=== PATIENT | female | born 1955 | race Caucasian/White ===

== ENCOUNTER 2023-09-02 16:09 | Inpatient (IN) | payer MEDICARE ==
[2023-09-02] MEDS ORDERED: Cefepime 2 GM VIAL ONE (16:58)
[2023-09-02] MEDS ORDERED: Acetaminophen 500 MG TAB ONE (16:58)
[2023-09-02] MEDS ORDERED: Sodium Chloride 0.9% 100 ML ONE (16:59)
[2023-09-02 17:02] LABS: #Monocytes 0.6 thou/uL (0.11-0.59); #Neutrophils 6.7 thou/uL (1.40-6.50); %Basophils 0.2 % (0.0-1.0); %Eosinophils 0.2 % (0.0-10.0); %Monocytes 7.1 % (0.0-10.0); %Neutrophils 80.7 % (42.0-75.0); Hematocrit 39.8 % (36.0-47.0); Hemoglobin 13.7 g/dL (12.0-16.0); Mean Corpuscular HGB CONC 34.4 g/dL (32.0-36.0); Mean Corpuscular Hemoglobin 32.1 pg (27.0-31.0); Mean Corpuscular Volume 93.2 fl (78.0-98.0); Mean Platelet Volume 9.7 fL (7.4-10.4); Platelet Count 151 10x3/uL (130-400); RBC Distribution Width 12.5 % (11.5-14.5); Red Blood Cell (RBC) Count 4.27 mill/uL (4.20-5.40); White Blood Cell (WBC) Count 8.4 10x3/uL (4.8-10.8)
[2023-09-02 17:17] LABS: ALT (SGPT) 12 U/L (8-55); AST (SGOT) 18 U/L (5-34); Alkaline Phosphatase 46 U/L (40-110); Anion Gap 13 mmol/L (10-20); BUN (Urea Nitrogen) 14 mg/dL (9.8-20.1); Bilirubin, Total 0.9 mg/dL (0.2-1.2); Calc. Creatinine Clearance 0 mL/min (70-130); Calcium 9.3 mg/dL (7.8-10.44); Carbon Dioxide 25 mmol/L (23-31); Chloride 101 mmol/L (98-107); Estimated GFR 92; Globulin 2.8 g/dL (2.4-3.5); Glucose 103 mg/dL (80-115); Potassium 3.6 mmol/L (3.5-5.1); Protein, Total 6.8 g/dL (5.8-8.1); Sodium 135 mmol/L (136-145)
[2023-09-02 17:21] LABS: Troponin I 0.037 ng/mL (< 0.028)
[2023-09-02] MEDS ORDERED: Vancomycin (BATCH) 1.25 GM in Premix 1 BAG IVPB SCH (17:45)
[2023-09-02 17:54] LABS: SARS-CoV-2 NAA Rapid Test Not Detected (NotDetected)
[2023-09-02] MEDS ORDERED: Aspirin Chewable 81 MG TAB ONE (17:54)
[2023-09-02] MEDS ORDERED: Acetaminophen 325 MG TAB PO PRN (18:01)
[2023-09-02] MEDS ORDERED: Acetaminophen 650 MG Suppository PR PRN (18:01)
[2023-09-02] MEDS ORDERED: Nitroglycerin 0.4 MG TAB (25 Tab Bottle) SL PRN (18:04)
[2023-09-02] MEDS ORDERED: Sodium Chloride 0.65% Nasal 44 ML BOT EA NARE PRN (18:41)
[2023-09-02] MEDS ORDERED: Sodium Chloride 0.9% 1,000 ML IV SCH (18:45)
[2023-09-02] MEDS ORDERED: Ipratropium/Albuterol 3 ML NEB NEB SCH (18:45)
[2023-09-02 19:16] LABS: Bacteria/HPF None Seen HPF (None Seen); Bilirubin Negative (Negative); Blood, Urine Negative (Negative); CAUTI Indications for Culture Fever or rigors; Clarity Clear (Clear); Glucose, Urine (Dipstick) Normal (Negative); Ketone, Urine 10 mg/dL (Negative); Leukocyte Negative Leu/uL (Negative); Nitrite Negative (Negative); Protein, Urine (Dipstick) 50 mg/dL (Neg-Trace); RBC/HPF 0-3 HPF (0-3); Specific Gravity, Urine 1.015 (1.002-1.036); Squamous Epithelial None Seen HPF (0-3); Urobilinogen Normal mg/dL (Less than 2); WBC/HPF 0-3 HPF (0-3); pH, Urine 5.5 (5.0-9.0)
[2023-09-02 19:17] LABS: Urine Culture Reflex No No
[2023-09-02 19:42] VITALS: BMI 23.5
[2023-09-02 20:19] LABS: Legionella Urinary Ag Negative (Negative); Strep pneumo Urine Ag NEGATIVE (NEGATIVE)
[2023-09-02] MEDS: Azithromycin 500 MG in Sodium Chloride 0.9% 250 ML 250 ML IVPB SCH (20:19)
[2023-09-02] MEDS: Benzonatate 100 MG CAP PO SCH (20:20)
[2023-09-02] MEDS: cefTRIAXone\\ROCEPHIN 1 GM in Sodium Chloride 0.9% 100 ML IVPB SCH (20:20)
[2023-09-02] MEDS: Famotidine 20 MG TAB PO SCH (20:20)
[2023-09-02] MEDS: guaiFENesin ER 600 MG TAB PO SCH (20:20)
[2023-09-02] MEDS ORDERED: Ondansetron PF 4 MG/2 ML Vial IVP PRN (20:30)
[2023-09-02] MEDS ORDERED: Ondansetron ODT 4 MG TAB SL PRN (20:30)
[2023-09-02 23:10] LABS: Magnesium 1.7 mg/dL (1.6-2.6)
[2023-09-02 23:16] LABS: Troponin I 0.092 ng/mL (< 0.028)
[2023-09-03] MEDS ORDERED: Magnesium Sulfate In Water 4 GM in Premix 1 BAG IVPB SCH (02:30)
[2023-09-03 04:44] LABS: #Eosinphils 0.1 thou/uL (0.0-0.7); #Monocytes 0.8 thou/uL (0.11-0.59); #Neutrophils 7.8 thou/uL (1.40-6.50); %Basophils 0.3 % (0.0-1.0); %Eosinophils 0.8 % (0.0-10.0); %Lymphocytes 14.9 % (21.0-51.0); %Neutrophils 75.5 % (42.0-75.0); Hematocrit 34.1 % (36.0-47.0); Hemoglobin 11.6 g/dL (12.0-16.0); Mean Corpuscular Hemoglobin 32.4 pg (27.0-31.0); Mean Corpuscular Volume 95.3 fl (78.0-98.0); Mean Platelet Volume 10.5 fL (7.4-10.4); Platelet Count 130 10x3/uL (130-400); RBC Distribution Width 12.6 % (11.5-14.5); Red Blood Cell (RBC) Count 3.58 mill/uL (4.20-5.40); White Blood Cell (WBC) Count 10.3 10x3/uL (4.8-10.8)
[2023-09-03 05:10] LABS: Anion Gap 9 mmol/L (10-20); BUN (Urea Nitrogen) 13 mg/dL (9.8-20.1); Calc. Creatinine Clearance 90 mL/min (70-130); Calcium 8.3 mg/dL (7.8-10.44); Carbon Dioxide 25 mmol/L (23-31); Cardiac Risk 2.3 (Less than 4.5); Chloride 108 mmol/L (98-107); Cholesterol 150 mg/dl (< 200 Desired); Estimated GFR 96; Glucose 90 mg/dL (80-115); HDL Cholesterol 64 mg/dL (>60 Neg Risk); LDL Cholesterol, Calculated 69 mg/dL; Potassium 3.6 mmol/L (3.5-5.1); Sodium 138 mmol/L (136-145); Triglycerides 84 mg/dL (Less than 150)
[2023-09-03] MEDS: Benzonatate 100 MG CAP PO SCH ×3 (09:52→21:20)
[2023-09-03] MEDS: Aspirin Chewable 81 MG TAB PO SCH (09:53)
[2023-09-03] MEDS: Famotidine 20 MG TAB PO SCH ×2 (09:53→21:20)
[2023-09-03] MEDS: guaiFENesin ER 600 MG TAB PO SCH ×2 (09:53→21:21)
[2023-09-03] MEDS: Saccharomyces boulardii 250 MG CAP PO SCH (09:53)
[2023-09-03] MEDS: Benzocaine/Menthol 1 LOZ LOZ PO PRN ×2 (12:37→17:41)
[2023-09-03 13:26] LABS: Troponin I 0.128 ng/mL (< 0.028)
[2023-09-03] MEDS: Ipratropium/Albuterol 3 ML NEB NEB PRN (20:35)
[2023-09-03] MEDS ORDERED: Atorvastatin Calcium 20 MG TAB PO SCH (21:00)
[2023-09-03] MEDS: cefTRIAXone\\ROCEPHIN 1 GM in Sodium Chloride 0.9% 100 ML IVPB SCH (21:21)
[2023-09-03] MEDS: Azithromycin 500 MG in Sodium Chloride 0.9% 250 ML 250 ML IVPB SCH (21:21)
[2023-09-04] MEDS: Benzonatate 100 MG CAP PO SCH (08:13)
[2023-09-04] MEDS: Famotidine 20 MG TAB PO SCH (08:13)
[2023-09-04] MEDS: guaiFENesin ER 600 MG TAB PO SCH (08:13)
[2023-09-04] MEDS: Aspirin Chewable 81 MG TAB PO SCH (08:14)
[2023-09-04] MEDS: Saccharomyces boulardii 250 MG CAP PO SCH (08:14)
[2023-09-04] MEDS: Ipratropium/Albuterol 3 ML NEB NEB PRN (08:30)
[2023-09-04 08:39] VITALS: TEMP 98.3
[2023-09-04 10:33] VITALS: BP 94/60
== END 2023-09-04 12:11 | disposition home or self-care (01) | DRG 193 ==
LOC: ERS 16:09 → 2SW 17:49
PROVIDERS: ADMIT Internal Medicine; ATTEND Family Medicine
DX: J18.9 Pneumonia, unspecified organism (principal); J96.01 Acute respiratory failure with hypoxia; C56.9 Malignant neoplasm of unspecified ovary; I10 Essential (primary) hypertension; Z79.899 Other long term (current) drug therapy; Z90.710 Acquired absence of both cervix and uterus; Z90.89 Acquired absence of other organs; Z98.890 Other specified postprocedural states; Z82.49 Family history of ischemic heart disease and other diseases of the circulatory system; F17.210 Nicotine dependence, cigarettes, uncomplicated; Z79.82 Long term (current) use of aspirin; R79.89 Other specified abnormal findings of blood chemistry; E78.5 Hyperlipidemia, unspecified; Z11.52 Encounter for screening for COVID-19
CPT/HCPCS: 36415; 71045; 80048; 80053; 80061; 81001; 83605; 83735; 83880; 84443; 84484; 85025; 87040; 87449; 87633; 87798; 87804; 87899; 93005; 93306; 96365; J0456; J0692; J0696; J3370; J3475; J3490; J7050; J7620; U0002